=== PATIENT | female | born 1965 | race Caucasian/White ===

== ENCOUNTER → 2023-05-11 17:36 | Outpatient (REF) | payer BC, SELFPAY | LOC: WDC 17:36 | PROVIDERS: ATTENDING PHYSICIAN Nurse Practitioner; FAMILY PHYSICIAN Student in an Organized Health Care Education/Training Program | DX: Z12.31 Encounter for screening mammogram for malignant neoplasm of breast (principal) | CPT/HCPCS: 77063; 77067 ==

== ENCOUNTER → 2023-08-30 10:15 | Outpatient (REF) | payer BC, SELFPAY ==
[2023-08-30 11:00] LABS: % Basophils 0.6 % (0-2); % Eosinophils 0.6 % (0-6); % Immature Granulocytes 0.2 % (0-0.5); % Lymphocytes 35.3 % (20.5-51.1); % Monocytes 7.3 % (1.7-9.3); Absolute Lymphocytes 1.7 10^3/uL (1.2-3.4); Absolute Monocytes 0.3 10^3/uL (0.1-0.6); Absolute Neutrophils 2.6 10^3/uL (1.4-6.5); Hematocrit 41.6 % (37.0-47.0); Hemoglobin 14.1 g/dL (12.0-16.0); Mean Corp Hgb Conc. 33.9 g/dL (33.0-37.0); Mean Corpuscular Hgb 29.9 pg (27.0-31.0); Mean Corpuscular Volume 88.1 fL (81.0-99.0); Mean Platelet Volume 9.6 fL (7.4-10.4); Nucleated Red Blood Cells % 0 %; Platelet Count 257 10^3/uL (130-400); Red Blood Cell Count 4.72 10^6/uL (4.20-5.40); Red Cell Dist. Width 14.5 % (11.5-14.5); White Blood Cell Count 4.7 10^3/uL (4.8-10.8)
[2023-08-30 11:29] LABS: ALT (SGPT) 22 U/L (0-35); AST (SGOT) 25 U/L (14-36); Albumin 4.5 g/dl (3.5-5.0); Alkaline Phosphatase 74 U/L (38-126); Blood Urea Nitrogen 20 mg/dl (7-17); Calcium 10.1 mg/dl (8.4-10.2); Carbon Dioxide 27 mmol/L (22-30); Chloride 105 mmol/L (98-107); Glucose 104 mg/dl (70-99); HDL Cholesterol 83 mg/dl; LDL Cholesterol, Calculated 116 mg/dl; Potassium 4.6 mmol/L (3.5-5.1); Sodium 140 mmol/L (135-145); Total Bilirubin 0.5 mg/dl (0.2-1.3); Total Cholesterol 217 mg/dl (50-199); Triglyceride 91 mg/dl (10-149); Very Low Density Lipoprotein 18 mg/dl (0-30); eGFR > 60.00
[2023-08-30 11:58] LABS: TSH Reflex To Free T4 1.61 uIU/ml (0.47-4.68)
== END ==
LOC: REG 10:15
PROVIDERS: ATTENDING PHYSICIAN Student in an Organized Health Care Education/Training Program
DX: Z00.00 Encounter for general adult medical examination without abnormal findings (principal)
CPT/HCPCS: 36415; 80053; 80061; 84443; 85025

== ENCOUNTER 2024-10-06 09:54 | Emergency (ER) | payer OTHER, SELFPAY ==
[2024-10-06 09:56] VITALS: BP 196/104
[2024-10-06] MEDS: DECADRON 10 MG IM (10:58)
[2024-10-06] MEDS: PERCOCET 5/325 1 TABLET PO (11:01)
[2024-10-06] MEDS: LIDOCAINE 4% PATCH 1 PATCH TOPICAL (11:04)
[2024-10-06 11:07] VITALS: BP 152/86
--- NOTE | 2024-10-06 11:15 | ED.GENMED ---
History of Present Illness
General
Chief Complaint: Back Pain
Source: patient and family
Time Seen by Provider: 10/06/24 10:15
History of Present Illness
History of Present Illness:
59-year-old female presenting to the emergency department for evaluation of back pain that has been ongoing since Monday of this week, initially described to be more mild, saw her chiropractor twice who thought pain was related to a muscular
etiology, over the last 24 to 36 hours patient has had significantly increased pain in the left lower back with a burning sensation going towards her hip and groin, worse with any attempted movement and minimal to no relief [id number] Motrin
and Aleve patient has any fevers, chills, rigors, urinary symptoms or bowel changes, saddle anesthesia/focal weakness or numbness, traumatic injuries, history of substance abuse or any other red flag symptoms. Patient last dose of medication was
around 7:15 AM this morning. Has not had any imaging yet for the symptoms.
Past History
Past History
ED Past Medical History: None
ED Past Surgical History: Orthopedic and Tonsilectomy
Social History
Tobacco: Non-smoker
Alcohol: None
Drug: None
Personal:
Living: with family
Review of Systems
Review of Systems
All Other Systems: ROS reviewed and negative except as documented in HPI and ROS
Phy Exam
Physical Exam
Physical Exam:
GENERAL: Alert , appears very uncomfortable especially with any attempted movements, laying flat/reclined on the bed
EYE: clear conjunctiva b/l
NECK: Supple
ENT: o/p clr, mmm.
ABDOMEN: Soft, without focal tenderness, no r/g, no cvat
BACK: Very limited range of motion secondary to pain, no focal tenderness, no midline bony tenderness, no rashes
NEUROLOGICAL: Alert and oriented, no focal neuro deficits. Patellar deep tendon reflexes intact and equal bilaterally, sensation grossly intact and equal to light touch bilateral lower extremities
SKIN: Warm and dry, skin intact.
MUSCULOSKELETAL: No edema, well perfused. EHL intact bilaterally
PSYCH: Normal and appropriate interaction.
Scores
Heart Failure Risk
Heart Failure Risk Score: Not Applicable
Heart Score for Chest Pain Patients
STEMI patient?: Not applicable
Withdrawal Assessment of Alcohol
Withdrawal Assessment Completed?: Not applicable
Course
Orders/Labs/Results
Orders:
Orders
10/06/24 10:49
Dexamethasone Sod Phosphate [Decadron] 10 mg IM NOW STA
Lidocaine [Lidocaine 4% Patch] 1 patch TOPICAL NOW STA
Apply Lidocaine patch(s) to:: left lower back
Oxycodone/Acetaminophen [Percocet 5/325] 1 tablet PO NOW STA
CR Lumbar Spine Comp Min 4 Vw* Urgent
Comment:
Reason For Exam: left lower back pain
10/06/24 12:36
Diazepam [Valium] 5 mg PO NOW STA
Vital Signs
Initial and Last Documented VS:
Initial Vital Signs
Temp Pulse Resp BP Pulse Ox
98.5 F 91 18 196/104 98
10/06/24 09:56 10/06/24 09:56 10/06/24 09:56 10/06/24 09:56 10/06/24 09:56
Last Documented Vital Signs
Temp Pulse Resp BP Pulse Ox
98.5 F 68 18 150/82 100
10/06/24 09:56 10/06/24 13:57 10/06/24 13:57 10/06/24 13:57 10/06/24 13:57
MDM/Problems Addressed
Differential Diagnosis Includes:
Lumbar strain
Sciatica
Disc herniation/nerve impingement
Spinal stenosis
Progression of the patient's known scoliosis
UTI/pyelonephritis considered however has lack of fevers and urinary symptoms
Discitis/abscess
No focal neurologic symptoms to suggest cauda equina
MDM/Problems Addressed:
59-year-old female presented to the ER for left lower back pain for the last 6 days, minimal improvement with [id number] arcbgh-frp-onvfy anti-inflammatories. Patient without any focal findings on exam but appears very uncomfortable with any
attempted movement. Will trial steroid, Percocet and topical lidocaine patch here. X-ray ordered. Anticipate discharge home with continued need for outpatient follow-up/pain management.
*Radiology
Radiology exam reviewed: preliminary read by ED provider (Degenerative changes, no acute fracture)
*Pulse Oximetry
SaO2: 100
Oxygen Mode of Delivery: Room air
Patient hypoxic: no
*Critical Care Note
Total Time (30-74mins, 75-104mins- exclusive of procedures): Not Applicable
Patient Management
Escalation/DeEscalation of care consider admission/obs:
Patient with minimal relief following initial medication, Valium provided for additional relief which patient states helped significantly. She feels comfortable being discharged home. Aware of return precautions. Outpatient information provided.
Stable for discharge home otherwise.
ED Attending Note
-
Portions of this chart may have been created with voice recognition software.� Occasional wrong word or��sound alike� substitutions may have occurred due to the inherent limitations of voice recognition software.
Discharge Plan
Departure
Patient Disposition: Home (Routine Discharge)
Date of Disposition: 10/06/24
Time of Disposition: 13:07
Patient with high blood pressure during this ER visit?: Yes
Discharge Problem:
Dorsalgia
Instructions: Low Back Pain (DC)
Prescriptions:
New
oxycodone 5 mg tablet
5 mg PO Q8H PRN (Reason: Pain) Qty: 10 0RF
baclofen 10 mg tablet
10 mg PO BID PRN (Reason: muscle spasm) Qty: 10 0RF
methylprednisolone [Medrol (Alexander)] 4 mg tablets,dose pack
4 mg PO DIRECTED Qty: 21 0RF
No Action
multivitamin 1 EACH tablet
1 ea PO DAILY
docosahexaenoic acid-epa 1 CAP capsule
1 cap PO BID
Referrals:
Ирина Chapin MD [Family Provider, Internal Medicine]
Israel Ozuna MD [Active, Orthopedics]
Stand Alone Forms: Return to Work
Interventions
Interventions:
*Risk Screen - Suicide Last Done: 10/06/24 09:56
*General Assessment Last Done: 10/06/24 09:56
*Neglect/Abuse Screening Last Done: 10/06/24 09:56
*Nursing Disposition Last Done: 10/06/24 13:57
ED-Musculoskeletal Assessment Last Done: 10/06/24 13:08
Discharge Date and Time
Print Language: SPANISH
[2024-10-06] MEDS: VALIUM 5 MG PO (12:41)
[2024-10-06 13:57] VITALS: BP 150/82
== END 2024-10-06 14:09 | disposition home or self-care (01) ==
LOC: EMR 09:54
PROVIDERS: EMERGENCY PHYSICIAN Emergency Medicine; FAMILY PHYSICIAN Student in an Organized Health Care Education/Training Program
DX: M54.50 Low back pain, unspecified (principal); R20.8 Other disturbances of skin sensation; R03.0 Elevated blood-pressure reading, without diagnosis of hypertension; Z88.1 Allergy status to other antibiotic agents; Z88.5 Allergy status to narcotic agent
CPT/HCPCS: 99284; 96372; 72110